=== PATIENT | female | born 1995 | race Caucasian/White ===

== ENCOUNTER 2018-05-13 00:19 | Inpatient (IN) | payer OTHER ==
[2018-05-13] MEDS: LR 1,000 ML IV ×5 (02:47→22:28)
[2018-05-13] MEDS: LACTATED RINGER'S 1000 ML IV ×2 (02:52→02:59)
[2018-05-13] MEDS ORDERED: OXYTOCIN 30 UNITS IN 0.9% NaCl 500ML IV BAG (J2590) As Ordered (02:58)
[2018-05-13] MEDS ORDERED: LR 1,000 ML IV (02:59)
[2018-05-13 03:00] LABS: HEMATOCRIT 36.4 % (36.0-47.0); HEMOGLOBIN 12.3 g/dl (12.0-15.5); MEAN CORPUSCULAR HEMOGLOBIN 31.2 pg (27.0-33.0); MEAN CORPUSCULAR HGB CONC 33.8 g/dl (32.0-36.5); MEAN CORPUSCULAR VOLUME 92.4 fl (80.0-96.0); PLATELET COUNT, AUTOMATED 169 10^3/uL (150-450); RED BLOOD COUNT 3.94 10^6/uL (4.00-5.40); RED CELL DISTRIBUTION WIDTH 14.3 % (11.5-14.5); WHITE BLOOD COUNT 14.5 10^3/uL (4.0-10.0)
[2018-05-13] MEDS ORDERED: FENTANYL 2MCG/ML ROPIVACAINE 0.2% IN 0.9% NACL 200ML IVBAG As Ordered (03:06)
[2018-05-13] MEDS ORDERED: EPIDURAL COMMENT XX (03:25)
[2018-05-13] MEDS ORDERED: EPIDURAL/PCA KEYS XX (03:25)
[2018-05-13] MEDS ORDERED: REFRIGERATOR IV KEYS XX (03:25)
[2018-05-13] MEDS ORDERED: ePHEDrine SULFATE 25 MG/5 ML(5MG/ML) SYRINGE IV (03:25)
[2018-05-13] MEDS ORDERED: diphenhydrAMINE INJ 50MG/ML VIAL (J1200) IV (03:25)
[2018-05-13] MEDS ORDERED: LACTATED RINGER'S 1000 ML IV (03:25)
[2018-05-13] MEDS ORDERED: NALOXONE INJ 0.4 MG/1 ML VIAL (J2310) IV ×3 (03:25→12:10)
[2018-05-13] MEDS: FENTANYL/ROPIVACAINE/NACL BAG 200 ML EPIDURAL (03:25)
[2018-05-13] MEDS: ONDANSETRON 4MG/2ML VIAL (J2405) IV (04:31)
[2018-05-13] MEDS: PRENATAL VITAMINS CHEWABLE TABLET PO (09:00)
[2018-05-13] MEDS: OXYTOCIN DRIP 30 UNITS in APPROPRIATE DILUENT 1 EA IV (09:12)
[2018-05-13] MEDS ORDERED: BICITRA 30ML SOLN UDC As Ordered (10:57)
[2018-05-13] MEDS ORDERED: ceFAZolin 2 GM/D5W 50 ML IV BAG (J0690 PER 500MG) As Ordered (10:58)
[2018-05-13] MEDS ORDERED: SODIUM BICARBONATE 8.4% INJ 50MEQ 50 ML VIAL As Ordered (11:53)
[2018-05-13] MEDS ORDERED: LIDOCAINE 2% W/EPIN INJ 20ML **PRES FREE As Ordered (11:53)
[2018-05-13] MEDS ORDERED: OXYTOCIN INJ 10 UNITS/ML VIAL (J2590) As Ordered (11:53)
[2018-05-13] MEDS ORDERED: MORPHINE PRES-FREE INJ 10 MG/10 ML VIAL (J2274) As Ordered (11:54)
[2018-05-13] MEDS ORDERED: MEPERIDINE 50 MG/ML 1ML VIAL (J2175) As Ordered (11:54)
[2018-05-13] MEDS ORDERED: ONDANSETRON 4MG/2ML VIAL (J2405) As Ordered (12:00)
[2018-05-13] MEDS ORDERED: ONDANSETRON 4MG/2ML VIAL (J2405) IV ×3 (12:10→13:00)
[2018-05-13] MEDS ORDERED: KETOROLAC 60 MG/2 ML VIAL (J1885) As Ordered (12:10)
[2018-05-13] MEDS ORDERED: NALBUPHINE HCL 10 MG/ML AMP (J2300) IV ×2 (12:10→13:00)
[2018-05-13 12:33] LABS: CORD GAS ABE A -1.3; CORD GAS HCO3 A 26.8 MEQ/L; CORD GAS O2 SAT A 30.3 %; CORD GAS PH A 7.282 UNITS; CORD GAS PO2 A 17.4 mmHg; CORD GAS SBC A 21.7 MEQ/L; CORD GAS TCO2 A 28.5 MEQ/L
[2018-05-13 12:35] LABS: CORD GAS ABE V -3.1; CORD GAS O2 SAT V 61.3 %; CORD GAS PCO2 V 44.9 mmHg; CORD GAS PH V 7.327 UNITS; CORD GAS PO2 V 25.8 mmHg; CORD GAS TCO2 V 24.4 MEQ/L
[2018-05-13] MEDS ORDERED: RHOGAM 300 MCG (1500 IU) INJ (J2790) IM (13:00)
[2018-05-13] MEDS ORDERED: PROMETHAZINE 25 MG TAB PO (13:00)
[2018-05-13] MEDS ORDERED: METOCLOPRAMIDE INJ 10MG/2ML VIAL (J2765) IV (13:00)
[2018-05-13] MEDS ORDERED: MEASLES,MUMPS,RUBELLA VACCINE INJ (MMR-II) (90707) SC (13:00)
[2018-05-13] MEDS ORDERED: fentaNYL 100 MCG/2 ML INJECTION (J3010) IV (13:00)
[2018-05-13] MEDS ORDERED: MEPERIDINE INJ 25 MG/ML VIAL (J2175) IV (13:00)
[2018-05-13] MEDS ORDERED: PERCOCET 5MG/325MG TAB PO (13:00)
[2018-05-13] MEDS ORDERED: METHYLERGONOVINE MALEATE 0.2 MG TAB PO (13:00)
[2018-05-13] MEDS ORDERED: MOM 30ML SUSPENSION UDC PO (13:00)
[2018-05-13] MEDS ORDERED: DOCUSATE SODIUM 100 MG CAP PO (13:00)
[2018-05-13] MEDS: METOCLOPRAMIDE INJ 10MG/2ML VIAL (J2765) IV (14:49)
[2018-05-13] MEDS: PROMETHAZINE INJ 25 MG/ML VIAL (J2550) IV (18:09)
[2018-05-13] MEDS: KETOROLAC 30 MG/ML VIAL (J1885) IV ×2 (18:10→23:06)
[2018-05-14] MEDS: KETOROLAC 30 MG/ML VIAL (J1885) IV (05:12)
[2018-05-14] MEDS ORDERED: BICITRA 30ML SOLN UDC PO (06:00)
[2018-05-14 07:10] LABS: HEMATOCRIT 27.9 % (36.0-47.0); MEAN CORPUSCULAR HEMOGLOBIN 31.3 pg (27.0-33.0); MEAN CORPUSCULAR HGB CONC 33.3 g/dl (32.0-36.5); MEAN CORPUSCULAR VOLUME 93.9 fl (80.0-96.0); PLATELET COUNT, AUTOMATED 127 10^3/uL (150-450); RED BLOOD COUNT 2.97 10^6/uL (4.00-5.40); RED CELL DISTRIBUTION WIDTH 14.7 % (11.5-14.5); WHITE BLOOD COUNT 16.9 10^3/uL (4.0-10.0)
[2018-05-14 07:16] LABS: HEMOGLOBIN 9.3 g/dl (12.0-15.5)
[2018-05-14] MEDS: PRENATAL VITAMINS CHEWABLE TABLET PO (10:22)
[2018-05-14] MEDS: PERCOCET 5MG/325MG TAB PO ×2 (10:23→17:11)
[2018-05-14] MEDS: IBUPROFEN 800 MG TAB PO ×2 (14:11→21:41)
[2018-05-15] MEDS: PERCOCET 5MG/325MG TAB PO ×2 (04:48→10:30)
[2018-05-15] MEDS: IBUPROFEN 800 MG TAB PO (05:39)
[2018-05-15] MEDS: PRENATAL VITAMINS CHEWABLE TABLET PO (08:49)
== END 2018-05-15 12:09 | disposition home or self-care (01) | DRG 766 ==
LOC: M LDO 00:19 → M LDI 02:39 → M OBS 14:02
PROVIDERS: Obstetrics & Gynecology
PROC: 10D00Z1 Extraction of Products of Conception, Low, Open Approach (ICD-10-PCS; principal; 2018-05-13 11:36)
DX: O62.0 Primary inadequate contractions (principal); Z3A.38 38 weeks gestation of pregnancy; O69.81X0 Labor and delivery complicated by cord around neck, without compression, not applicable or unspecified; O77.1 Fetal stress in labor or delivery due to drug administration; Z37.0 Single live birth

== ENCOUNTER → 2019-09-07 | Outpatient (REF) | payer OTHER ==
[~2019-09-07] MED LIST: COLA100C5 PO; IBUP-1114 PO; OXYC1TAB23 PO; PRENTAB9 PO
[2019-09-07 20:42] LABS: CHLAMYDIA DNA AMPLIFICATION NEGATIVE (NEGATIVE); GC DNA AMPLIFICATION NEGATIVE (NEGATIVE)
== END ==
LOC: M SFHCLERA 11:46
PROVIDERS: ATTEND Nurse Practitioner Family
DX: R30.0 Dysuria (principal)
CPT/HCPCS: 81002; 81025; 87088; 87186; 87661; G0463

== ENCOUNTER 2020-06-12 16:12 | Inpatient (IN) | payer OTHER ==
[~2020-06-12] VITALS: Ht 154.9 cm; Wt 82.5 kg
[2020-06-12 16:34] VITALS: BP 116/64
[2020-06-12] MEDS ORDERED: WELL100T2 PO (16:48)
[2020-06-12] MEDS ORDERED: MAGN400C2 PO (16:48)
[2020-06-12] MEDS ORDERED: LR 1,000 ML IV SCH (17:46)
[2020-06-12] MEDS ORDERED: LACTATED RINGER'S 1000 ML IV STA (17:46)
[2020-06-12] MEDS ORDERED: PENICILLIN G POTASSIUM IV 5 MU in D5W MINI-BAG PLUS 100 ML IV STA (17:46)
[2020-06-12 18:19] LABS: HEMATOCRIT 35.3 % (36.0-47.0); HEMOGLOBIN 11.5 g/dl (12.0-15.5); MEAN CORPUSCULAR HEMOGLOBIN 29.3 pg (27.0-33.0); MEAN CORPUSCULAR HGB CONC 32.6 g/dl (32.0-36.5); MEAN CORPUSCULAR VOLUME 89.8 fl (80.0-96.0); PLATELET COUNT, AUTOMATED 207 10^3/uL (150-450); RED BLOOD COUNT 3.93 10^6/uL (4.00-5.40)
[2020-06-12 19:23] VITALS: BP 130/60
[2020-06-12 20:12] VITALS: BP 104/64
[2020-06-12] MEDS ORDERED: PROMETHAZINE INJ 25 MG/ML VIAL (J2550) IV ONE (21:45)
[2020-06-12] MEDS ORDERED: BUTORPHANOL 2 MG/ML INJ (J0595) IV ONE (21:45)
[2020-06-12] MEDS ORDERED: PENICILLIN G POTASSIUM IV 2.5 MU in IV 1 EA IV SCH (22:00)
[2020-06-12 22:01] VITALS: BP 120/63
[2020-06-12 22:59] VITALS: BP 107/65
[2020-06-12] MEDS ORDERED: OXYTOCIN DRIP 30 UNITS in IV 1 EA IV SCH (23:15)
[2020-06-12 23:58] VITALS: BP 115/67
[2020-06-13] VITALS (21 sets, daily range): BP systolic 105–133; BP diastolic 54–85
[2020-06-13] MEDS ORDERED: FENTANYL 2MCG/ML ROPIVACAINE 0.2% IN 0.9% NACL 100ML IVBAG As Ordered ONE (01:58)
[2020-06-13] MEDS ORDERED: EPIDURAL COMMENT XX SCH (02:29)
[2020-06-13] MEDS ORDERED: REFRIGERATOR IV KEYS XX PRN (02:29)
[2020-06-13] MEDS ORDERED: ONDANSETRON 4MG/2ML VIAL IV PRN ×2 (02:29→11:15)
[2020-06-13] MEDS ORDERED: ePHEDrine SULFATE 25 MG/5 ML(5MG/ML) SYRINGE IV PRN (02:29)
[2020-06-13] MEDS ORDERED: EPIDURAL/PCA KEYS XX PRN (02:29)
[2020-06-13] MEDS ORDERED: NALOXONE INJ 0.4MG/1ML VIAL (J2310 PER 1MG) IV PRN ×3 (02:29→10:19)
[2020-06-13] MEDS ORDERED: diphenhydrAMINE 50MG/ML VIAL (J1200) IV PRN ×2 (02:29→10:19)
[2020-06-13] MEDS ORDERED: LACTATED RINGER'S 1000 ML IV PRN (02:29)
[2020-06-13] MEDS ORDERED: FENTANYL/ROPIVACAINE/NACL BAG 100 ML EPIDURAL SCH (02:29)
--- NOTE | 2020-06-13 08:31 | IPNPDOC ---
Text Note Date of Service The patient was seen on 06/13/20. NOTE Accept care from Dr. Coker patient is a 25 yo @ 37wks gestation admitted for SROM at 1740 yesterday. patient on 6mU pit. patient has history of prior followed by CD for arrest diagnosis. patient desires to have TOLAC with this . She was counseled in clinic as well as on admission of risks of TOLAC vs. RCD. she was checked at around 0700 to be anterior lip. vitals: normal NAD abd: gravid, soft, nt fht: 150/mod david/no accel/variable decels toco: ctx q 2-4mins CE: /-1, OP presentation a/p patient in active labor. my first check to be . variable decels. IUPC placed for MVU as well as amnioinfusion. Discussed with patient my concern for variable decelerations. Will attempt amnioinfusion. If this does not resolve the variable deceleration and she still remote from delivery, I would recommend a repeat delivery. Patient expresses understanding. DO Loida VS,Tena, I+O VS, Fishbone, I+O Laboratory Tests 06/12/20 18:11 Vital Signs Date Time Temp Pulse Resp B/P (MAP) Pulse Ox O2 Delivery O2 Flow Rate FiO2 06/13/20 08:07 97.6 06/13/20 03:28 86 117/56 (76) 06/12/20 22:59 18 MINGO SOUSA DO Jun 13, 2020 08:19
--- NOTE | 2020-06-13 08:42 | HPE ---
DATE OF ADMISSION: 06/12/2020 25-year-old 3, para 2, last menstrual period (LMP) 09/28/2019, estimated date of confinement (EDC) 07/04/2020 at 37 weeks with contractions, spontaneous rupture of membranes, moderate amount of clear Liqua and GBS negative. RISK FACTORS: She has had a previous section for failure to dilate and a non-reassuring heart category 2 strip. She has anxiety and is on Wellbutrin and Mag oxide for migraines . She has a past history, 3 years ago, of Chlamydia. PAST HISTORY: 05/08/2015 at 37 weeks - spontaneous vaginal delivery, 7 pounds 14 ounces. 05/13/2018 at 38 weeks - primary section for non-reassuring heart category 2, failure to progress, got to 8 cm. LABS: O+, HIV negative, hepatitis negative, RPR negative. Varicella immune. Pap normal. Urine negative. Gonorrhea and chlamydia neg. 1-hour glucose 97. GBS was negative. Blood pressure is 116/64, respirations are 16, pulse 104, temperature is 97.9. On examination, she appears distressed. Symphysis fundus height is 40, vertex presenting posterior 2 cm with significant show and spontaneous rupture of membranes at the bedside. Our plan of management is epidural as needed. Request for trial of labor after caesarian (TOLAC). We reviewed the last delivery note with section with the patient. We then reviewed the risks and benefits of TOLACl including the risk of rupture of the uterus less than 1%, at which time outcomes would be the possibility of blood transfusion, possibility of hysterectomy, remote possibility of demise, injuries to ureters, bladder or bowel because of the urgent and emergent it would be required. The rest of the examination unremarkable. Normocephalic, atraumatic. Neck: Full range of motion. Pupils equal and reactive to light. Distal pulses symmetric. No evidence of deep venous thrombosis (DVT), pulmonary embolus (PE) or superficial phlebitis. Chest is clear bilaterally to bases. No wheezes or rhonchi. No costovertebral angle (CVA) tenderness. Abdomen: Soft. Incisional scar is nontender. She has no complaints, cough, wheeze, shortness breath or dyspnea on exertion. No pedal edema. PAST FAMILY HISTORY: Unremarkable. PAST SURGICAL HISTORY: section. PAST MEDICAL HISTORY: Noncontributory outside of her anxiety. Presently her hemoglobin is 11.5, hematocrit 35.3 and platelets are 207. We discussed plan of care, answered all questions. 25-minute discussion. Epidural, when requested, will be initiated and she is safe to proceed at the present time.
[2020-06-13] MEDS: FERROUS SULFATE 325MG TAB PO SCH (09:00)
[2020-06-13] MEDS: DOCUSATE SODIUM 100 MG CAP PO SCH ×2 (09:00→20:32)
[2020-06-13] MEDS: PRENATAL VITAMINS CHEWABLE TABLET PO SCH (09:00)
[2020-06-13] MEDS ORDERED: ceFAZolin 2 GM/D5W 50 ML IV BAG (J0690 PER 500MG) As Ordered ONE (09:05)
[2020-06-13] MEDS ORDERED: BICITRA 30ML SOLN UDC As Ordered ONE (09:06)
[2020-06-13] MEDS ORDERED: TRANEXAMIC ACID 100 MG/ML 10ML VIAL As Ordered ONE (09:10)
[2020-06-13] MEDS ORDERED: AZITHROMYCIN INJ 500MG VIAL (J0456 PER 500MG) As Ordered ONE (09:10)
[2020-06-13] MEDS ORDERED: ceFAZolin SOD 2 GM in IV 1 EA IV ONE (09:30)
[2020-06-13] MEDS ORDERED: BICITRA 30ML SOLN UDC PO ONE (09:30)
[2020-06-13] MEDS ORDERED: TRANEXAMIC ACID INJection 1,000 MG in D5W 100 ML IV ONE (09:30)
[2020-06-13] MEDS ORDERED: AZITHROMYCIN INJ 500 MG, VIAL MATE ADAPTER 1 EACH in D5W 250 ML IV ONE (09:30)
--- NOTE | 2020-06-13 09:34 | IPNPDOC ---
Text Note Date of Service The patient was seen on 06/13/20. NOTE patient is a 25 yo @ 37wks gestation admitted for SROM at 1740 yesterday. pit was turned off due to concern for recurrent lates as well as variable decels. Amnioinfusion started. vitals: normal NAD abd: gravid, soft, nt fht: 150/mod-min david/no accel/variable and late decels IUPC: > 180MVU when oxytocin was at 6mU/min CE: a/p patient in active labor. my first check to be . amnioinfusion did not help with variable decels. cervical check regressed. Discussed with patient my concern for status was well as lack of cervical progress in active labor. At this point, I recommend a repeat section. Discussed risk of infection, bleeding requiring blood transfusion, injuring to surrounding organs, hysterectomy, post operative pain. patient and spouse express understanding. consent forms signed. ancef and azithromycin for abx. tranexamic acid prior to incision. back to OR once team ready. DO MARIJA Mariscal,Tena, I+O VS, Bethanye, I+O Laboratory Tests 06/12/20 18:11 Vital Signs Date Time Temp Pulse Resp B/P (MAP) Pulse Ox O2 Delivery O2 Flow Rate FiO2 06/13/20 08:07 97.6 06/13/20 03:28 86 117/56 (76) 06/12/20 22:59 18 MINGO MARISCAL DO Jun 13, 2020 09:34
--- NOTE | 2020-06-13 09:45 | IPN ---
DATE: 06/12/2020 This lady was admitted with contractions and spontaneous rupture of membranes at 37 weeks of gestation. She has requested to have a trial of labor after (TOLAC). She was examined two and a half hours ago, cervix was posterior. 1 cm. Presently, now she is a good 3 cm, about 70% effaced, -3 station, occiput transverse, clear liquid noted. There may be a small bulge behind that, however, we are going to leave that to allow it to dilate the cervix. We discussed epidural and appropriate interval. Presently, category one strip, safe to proceed. We had did find that she is GBS negative.
[2020-06-13] MEDS ORDERED: METOCLOPRAMIDE INJ 10MG/2ML VIAL (J2765 PER 1) IV PRN ×2 (10:19→11:15)
[2020-06-13] MEDS ORDERED: NALBUPHINE HCL 10 MG/ML AMP (J2300) IV PRN (10:19)
[2020-06-13] MEDS ORDERED: LIDOCAINE 2% W/EPINEPHRINE 20ML VIAL **PRES FREE As Ordered ONE (10:22)
[2020-06-13] MEDS ORDERED: fentaNYL 100 MCG/2 ML INJECTION (J3010) As Ordered ONE (10:22)
[2020-06-13] MEDS ORDERED: ONDANSETRON 4MG/2ML VIAL As Ordered ONE (10:22)
[2020-06-13] MEDS ORDERED: dexameTHASONE 4 MG/ML 1ML VIAL (J1100 PER 1MG) As Ordered ONE (10:22)
[2020-06-13] MEDS ORDERED: PHENYLephrine HCL 500 MCG/5 ML (100MCG/ML) SYRINGE (J2370) As Ordered ONE (10:22)
[2020-06-13] MEDS ORDERED: OXYTOCIN INJ 10 UNITS/ML VIAL (J2590) As Ordered ONE ×2 (10:22→10:30)
[2020-06-13] MEDS ORDERED: MORPHINE PRES-FREE INJ 10 MG/10 ML VIAL (J2274) As Ordered ONE (10:22)
[2020-06-13] MEDS ORDERED: METOCLOPRAMIDE INJ 10MG/2ML VIAL (J2765 PER 1) As Ordered ONE (10:22)
[2020-06-13] MEDS ORDERED: KETOROLAC 60MG 2ML VIAL As Ordered ONE (10:22)
--- NOTE | 2020-06-13 10:23 | IPN ---
DATE: 06/13/2020 This lady is a trial of labor after (TOLAC). She is a 3, para 2. She is presently at 9 cm with an anterior lip on the right side with moulding. She is on Pitocin 6 six milliunits, progressing well. Category 1 strip. Plans are to let her labor down and hopefully she will pass that lip. She is having some significant back pain. No evidence for incisional pain. Safe to proceed.
[2020-06-13] MEDS ORDERED: RHOGAM 300 MCG (1500 IU) INJ (J2790) IM SCH (11:00)
[2020-06-13] MEDS ORDERED: PERCOCET 5MG/325MG TAB PO PRN ×2 (11:00→11:15)
[2020-06-13] MEDS ORDERED: MEASLES,MUMPS,RUBELLA VACCINE INJ (MMR-II) (90707) SC SCH (11:00)
--- NOTE | 2020-06-13 11:03 | DNPDOC ---
[facility] Delivery Note Delivery Note DATE OF DELIVERY: 06/13/20 PREDELIVERY DIAGNOSIS: 37+1/7 weeks' gestation and labor. POST DELIVERY DIAGNOSIS: Delivered. PROCEDURE: repeat low transverse section SNAGGER: Dr. Mingo Marsical DO ANESTHESIA: Epidural ESTIMATED BLOOD LOSS: 600 mL. FINDINGS: 7 pound 3 ounce, male , Score 8/8 DELIVERY SUMMARY: Uncomplicated Repeat low transverse section. Baby found to be OP. Placental abruption diagnosed with old clots seen with uterine incision. MINGO MARISCAL DO Jun 13, 2020 11:03
[2020-06-13] MEDS ORDERED: LR 1,000 ML IV SCH (11:15)
[2020-06-13] MEDS ORDERED: fentaNYL 100 MCG/2 ML INJECTION (J3010) IV PRN (11:15)
[2020-06-13] MEDS ORDERED: MEPERIDINE INJ 25 MG/ML VIAL (J2175) IV PRN (11:15)
--- NOTE | 2020-06-13 15:00 | POST-OPPD ---
Postoperative Procedure Note Date Of Procedure: Jun 13, 2020 PREOPERATIVE DIAGNOSIS: 1. Rupture of membranes at 37wks gesation 2. History of prior section 3. Non reassuring heart tracing 4. arrest of dilation POSTOPERATIVE DIAGNOSIS: 1. Placental abruption FINDINGS: Placental abruption, baby in OP position, viable male . 8/9 PROCEDURE: Repeat Low Transverse section SURGEON: Layne Mariscal DO [employer]OCK[employer] MACHINE OPERATOR: Yadi Diehl CNM, Assist in exposure, delivering of baby and closing through completion of case. ANESTHESIA: Epidural SPECIMENS: none ESTIMATED BLOOD LOSS: 600 REPLACED: 1300 LR DRAINS: 200 cc urine COMPLICATIONS: none POSTOPERATIVE CONDITION: stable Detailed description of procedure Description of procedure: The risks, benefits, indications and alternatives to the procedure were reviewed with the patient and informed consent was obtained. Epidural was dosed for surgical analgesic. She was prepped and draped in the normal sterile fashion in the dorsal supine position with a leftward tilt. The abdomen was entered through a pfannenstiel incision. Sharp dissection taken down to fascia layer. Fascia layer entered sharply and carried lateral and upward bilaterally. Space between fascia and rectus muscle created sharply and bluntly. Peritoneum entered sharply between rectus muscles. The rectus muscles and peritoneum bluntly along midline and exposes the gravid uterus. Bladder blade placed. The vesicouterine peritoneum was identified. Bladder found to be over the lower uterine segment. Bladder flap created sharply. Bladder blade repositioned over bladder flap. Patel uterine incision made. The uterine incision was extended superolaterally. Large blood clot extruded through hysterotomy. Head, in OP position, delivered through the hysterotomy. The anterior and posterior shoulders delivered followed by body with ease. The cord was clamped and cut. The was handed off to warmer. Baby with vigorous cries. Pitocin bolus started. Cord blood collected per routine. The placenta delivered spontaneously. The uterus was cleared of all clots and debris. Uterus unable to be exteriorized due to large size. The uterine incision was repaired with 2 layers with 0 chromic in a running locking fashion and 0 monocryl imbricating layer. Hysterotomy inspected to be hemostatic. The peritoneum, fascia and muscle bellies were inspected and noted to be hemostatic. The peritoneum brought back together midline with 3-0 vicryl. The fascia approximated with 0 vicryl suture in a running fashion. The subcutaneous tissue closed with 3-0 vicryl interrupted. The skin was closed with subcuticular 4-0 Monocryl. Dressing applied. The vagina was cleared of clots. Sponge laps, needle and instruments count correct x 2. Patient taken to recovery room in stable condition. DO LARS Mariscal LUAT N. DO Jun 13, 2020 11:09
[2020-06-13] MEDS: KETOROLAC 30 MG/ML 1ML VIAL IV SCH ×2 (17:30→23:19)
[2020-06-13] MEDS: ONDANSETRON 4MG/2ML VIAL IV PRN (19:28)
[2020-06-14] VITALS (7 sets, daily range): BP systolic 91–126; BP diastolic 48–76
[2020-06-14] MEDS: ONDANSETRON 4MG/2ML VIAL IV PRN (05:03)
[2020-06-14] MEDS: KETOROLAC 30 MG/ML 1ML VIAL IV SCH (05:03)
--- NOTE | 2020-06-14 08:08 | IPNPDOC ---
Progress Note Date of Service: Jun 14, 2020 Day#: 1 Progress Note SUBJECT: patient is a 25 yo s/p RLTCD after failed TOLAC POD #1. She has been ambulating, voiding spontaneously without issue and tolerating regular diet. Breast feeding without issue. Reports lochia is like a normal period. Had nausea overnight, controlled with zofran. OBJECTIVE: VITAL SIGNS: Within normal limits, afebrile. Alert and oriented times three. Abdomen: Fundus firm at U-2. Soft, appropriately tender to palpation, dressing in place LE: mild non pitting edema, symmetrical, non tender, no erythema A/P POD #1, doing well. continue with routine post operative care. anticipate d/c home tomorrow. le, DO VS, I&O, 24H, Fishbone Vital Signs/I&O Vital Signs Date Time Temp Pulse Resp B/P (MAP) Pulse Ox O2 Delivery O2 Flow Rate FiO2 06/14/20 07:20 97.7 84 16 91/48 96 Room Air I&O- Last 24 Hours up to 6 AM 06/14/20 06:00 Output Total 3300 ml Balance -3300 ml Laboratory Data CBC/BMP MINGO SOUSA DO Jun 14, 2020 08:08
[2020-06-14] MEDS: DOCUSATE SODIUM 100 MG CAP PO SCH ×2 (08:10→21:22)
[2020-06-14] MEDS: PRENATAL VITAMINS CHEWABLE TABLET PO SCH (08:10)
[2020-06-14] MEDS: FERROUS SULFATE 325MG TAB PO SCH (08:10)
[2020-06-14 08:13] LABS: HEMATOCRIT 26.7 % (36.0-47.0); MEAN CORPUSCULAR HEMOGLOBIN 30.1 pg (27.0-33.0); MEAN CORPUSCULAR HGB CONC 32.2 g/dl (32.0-36.5); MEAN CORPUSCULAR VOLUME 93.4 fl (80.0-96.0); PLATELET COUNT, AUTOMATED 171 10^3/uL (150-450); RED BLOOD COUNT 2.86 10^6/uL (4.00-5.40); WHITE BLOOD COUNT 18.9 10^3/uL (4.0-10.0)
[2020-06-14 08:23] LABS: HEMOGLOBIN 8.6 g/dl (12.0-15.5)
[2020-06-14] MEDS: IBUPROFEN 800 MG TAB PO SCH ×2 (13:54→21:22)
[2020-06-14] MEDS: PERCOCET 5MG/325MG TAB PO PRN ×2 (16:02→22:16)
[2020-06-15 02:39] VITALS: BP 90/51
[2020-06-15] MEDS: IBUPROFEN 800 MG TAB PO SCH (05:03)
[2020-06-15 05:55] VITALS: BP 101/59
[2020-06-15] MEDS: PERCOCET 5MG/325MG TAB PO PRN (06:40)
--- NOTE | 2020-06-15 07:22 | IPNPDOC ---
Progress Note Date of Service: Jun 15, 2020 Day#: 2 Progress Note SUBJECT: patient is a 25 yo s/p RLTCD after failed TOLAC POD #2. She has been ambulating, voiding spontaneously without issue and tolerating regular diet. Breast feeding without issue. Reports lochia is like a normal period. plans on using oral contraceptive. OBJECTIVE: VITAL SIGNS: Within normal limits, afebrile. Alert and oriented times three. Abdomen: Fundus firm at U-2. Soft, appropriately tender to palpation, dressing in place LE: mild non pitting edema, symmetrical, non tender, no erythema A/P POD #2, doing well. continue with routine post operative care. discharge instructions given. d/c home today. le, DO VS, I&O, 24H, Fishbone Vital Signs/I&O Vital Signs Date Time Temp Pulse Resp B/P (MAP) Pulse Ox O2 Delivery O2 Flow Rate FiO2 06/15/20 06:40 18 Room Air 06/15/20 05:55 97.8 86 101/59 (73) 96 Laboratory Data 24H LABS Laboratory Tests 2 06/14/20 07:39: Nucleated Red Blood Cells % (auto) 0.0 CBC/BMP Laboratory Tests 06/14/20 07:39 MINGO SOUSA DO Jun 15, 2020 07:22
--- NOTE | 2020-06-15 07:23 | OBDS ---
[facility] Obstetrical Discharge Sum. Obstetrical Discharge Summary VDRL: Non-Reactive Rh: Positive Rubella: Immune Infant Sex: Male Weight: pounds (7), ounces (4) Anesthesia: Regional Anesthesia A/P, Post Course List any complications Admission diagnosis: 1. Gravid at 36+6wks gestation 2. premature rupture of membranes 3. History of prior delivery Discharge diagnosis: 1. 2. Status post repeat low transverse delivery 3. Placenta abruption Condition at Discharge: stable Discharge Instructions: Home Activity: as tolerated Diet: regular Medications: filled at [facility] Follow-up: call ob clinic to make 1-[address] Mariscal [facility] course: Patient admitted at 36+6wks for PPROM. She has history of prior delivery desiring trial of labor. Patient had diagnosis of non reassuring heart tracing as well as arrest of dilation at 8cm. She underwent repeat delivery at 37wks gestation. Patient diagnosed with placental abruption during delivery. Delivery was uncomplicated. course uncomplicated and patient discharged home on day #2. MINGO MARISCAL DO Jun 14, 2020 01:52
[2020-06-15] MEDS: DOCUSATE SODIUM 100 MG CAP PO SCH (08:59)
[2020-06-15] MEDS: PRENATAL VITAMINS CHEWABLE TABLET PO SCH (08:59)
[2020-06-15] MEDS: FERROUS SULFATE 325MG TAB PO SCH (08:59)
[2020-06-15 09:40] VITALS: BP 107/61
== END 2020-06-15 11:30 | disposition home or self-care (01) | DRG 771 ==
LOC: M LDO 16:12 → M LDI 17:54 → M OBS 06-13 12:07
PROVIDERS: ADMIT Obstetrics & Gynecology; ATTEND Obstetrics & Gynecology
PROC: 10D00Z1 Extraction of Products of Conception, Low, Open Approach (ICD-10-PCS; principal; 2020-06-13 09:31)
DX: O42.02 Full-term premature rupture of membranes, onset of labor within 24 hours of rupture (principal); O45.93 Premature separation of placenta, unspecified, third trimester; Z3A.37 37 weeks gestation of pregnancy; O76 Abnormality in fetal heart rate and rhythm complicating labor and delivery; O34.211 Maternal care for low transverse scar from previous cesarean delivery; Z37.0 Single live birth; O62.0 Primary inadequate contractions

== ENCOUNTER 2022-02-26 10:19 | Emergency (ER) | payer OTHER ==
[~2022-02-26] VITALS: Ht 154.9 cm; Wt 78.9 kg
[~2022-02-26 10:19] MED LIST changes: +MAGN400C2 PO; +WELL100T2 PO
[2022-02-26] MEDS ORDERED: HYDR-4570 (10:31)
[2022-02-26] MEDS ORDERED: FLUO40CA (10:31)
[2022-02-26] MEDS ORDERED: PRAZ2CAP (10:31)
[2022-02-26 12:42] LABS: HEMATOCRIT 44.6 % (36.0-47.0); HEMOGLOBIN 14.6 g/dl (12.0-15.5); MEAN CORPUSCULAR HEMOGLOBIN 30.3 pg (27.0-33.0); MEAN CORPUSCULAR HGB CONC 32.7 g/dl (32.0-36.5); MEAN CORPUSCULAR VOLUME 92.5 fl (80.0-96.0); PLATELET COUNT, AUTOMATED 263 10^3/uL (150-450); RED BLOOD COUNT 4.82 10^6/uL (4.00-5.40); WHITE BLOOD COUNT 8.6 10^3/uL (4.0-10.0)
[2022-02-26 12:53] LABS: INR 0.93; PROTHROMBIN TIME 12.9 SECONDS (12.7-14.5)
[2022-02-26 12:54] LABS: PARTIAL THROMBOPLASTIN TIME 30.9 SECONDS (25.9-37.0)
[2022-02-26 12:56] LABS: D-DIMER QUANT 527.9 ng/ml (<500)
[2022-02-26 13:12] LABS: FREE T4 0.94 NG/DL (0.76-1.46); MAGNESIUM LEVEL 2.6 MG/DL (1.8-2.4); THYROID STIMULATING HORMONE 1.64 uIU/ML (0.358-3.740)
[2022-02-26 13:26] LABS: AMPHETAMINES LEVEL URINE NEGATIVE (NEGATIVE); BARBITURATES URINE NEGATIVE (NEGATIVE); BENZODIAZEPINES URINE NEGATIVE (NEGATIVE); CANNABINOIDS URINE POSITIVE (NEGATIVE); COCAINE METABOLITE URINE NEGATIVE (NEGATIVE); METHADONE URINE NEGATIVE (NEGATIVE); OPIATES URINE NEGATIVE (NEGATIVE); PHENCYCLIDINE URINE NEGATIVE (NEGATIVE)
[2022-02-26 13:31] LABS: ATYPICAL LYMPH 22 % (0-5); BASOPHILS 1 % (0-1); EOSINOPHILS 1 % (0-3); LYMPHOCYTES 25 % (16-44); MONOCYTES 5 % (0-5); NEUTROPHILS 46 % (28-66); PLATELET ESTIMATE NORMAL (NORMAL)
[2022-02-26 13:37] LABS: RSV AMPLIFICATION NEGATIVE (NEGATIVE)
[2022-02-26] MEDS ORDERED: ISOVUE-370 76% 100ML VIAL As Ordered ONE (14:35)
[2022-02-26] MEDS ORDERED: AMOX500T PO (15:44)
[2022-02-26 15:53] VITALS: BP 113/66
== END 2022-02-26 15:55 | disposition home or self-care (01) ==
LOC: M ED 10:19
DX: J18.9 Pneumonia, unspecified organism (principal); R20.2 Paresthesia of skin; F31.9 Bipolar disorder, unspecified; F33.9 Major depressive disorder, recurrent, unspecified; F41.9 Anxiety disorder, unspecified; E66.9 Obesity, unspecified; Z88.1 Allergy status to other antibiotic agents; Z88.2 Allergy status to sulfonamides; Z79.899 Other long term (current) drug therapy; Z77.098 Contact with and (suspected) exposure to other hazardous, chiefly nonmedicinal, chemicals; F12.20 Cannabis dependence, uncomplicated
CPT/HCPCS: 36415; 70450; 70496; 70498; 71250; 80047; 80307; 81001; 82607; 83735; 84439; 84443; 84484; 84702; 85025; 85379; 85610; 85730; 87631; 99284; Q9967